=== PATIENT | male | born 1945 | race Caucasian/White ===

== ENCOUNTER 2020-02-28 04:51 | Inpatient (IN) | payer MEDICARE ==
[~2020-02-28] VITALS: Ht 167.6 cm; Wt 68.2 kg
[2020-02-28] MEDS ORDERED: LISINOPRIL2.5 MG (04:57)
[2020-02-28] MEDS ORDERED: LASIX20 MG PO (04:58)
[2020-02-28 06:07] LABS: BASOPHILS 0.1 % (0-2); EOSINOPHILS 0.9 % (0-7); HEMATOCRIT 36.5 % (42.0-54.0); IMMATURE GRANULOCYTES 0.3 % (0-5); LYMPHOCYTES 16.9 % (15-50); MCH 30.2 pg (26.0-34.0); MCHC 32.9 g/dL (31.0-37.0); MCV 91.9 fL (80.0-100.0); MEAN PLATELET VOLUME 10.7 fL (7.4-10.4); MONOCYTES 9.3 % (2-11); NEUTROPHILS 72.5 % (40-80); PLATELET COUNT 297 10x3/uL (130-400); RBC 3.97 10x6/uL (4.20-6.10); RDW 14.4 % (11.5-14.5); WBC 11.6 10x3/uL (4.8-10.8)
[2020-02-28 06:23] LABS: CALC OSMOLALITY 265 mosm/kg (275-300); CALCIUM 9.5 mg/dL (8.5-10.1); CARBON DIOXIDE 24.1 mmol/L (21.0-32.0); CHLORIDE - SERUM 100 mmol/L (98-107); CREATININE - SERUM 1.2 mg/dL (0.6-1.3); GLUCOSE 95 mg/dL (74-106); POTASSIUM - SERUM 3.9 mmol/L (3.5-5.1); SODIUM 133 mmol/L (136-145); UREA NITROGEN 12 mg/dL (7-18); eGFR NON AFRICAN AMERICAN 63 mL/min (90-120)
[2020-02-28 06:32] LABS: ALBUMIN 2.8 g/dL (3.4-5.0); ALKALINE PHOSPHATASE 83 U/L (30-120); ALT (SGPT) 23 U/L (10-68); BILIRUBIN - TOTAL 0.92 mg/dL (0.2-1.3); C-REACTIVE PROTEIN 6.9 mg/dL (0.0-0.9); PRO BNP 2297 pg/mL (0-125); PROTEIN - SERUM 7.5 g/dL (6.4-8.2); THYROID STIMULATING HORMONE 1.29 uIU/mL (0.36-3.74); TROPONIN-I < 0.017 ng/mL (0.000-0.060)
[2020-02-28 06:52] VITALS: BP 138/61
--- NOTE | 2020-02-28 07:00 | NUR ---
assumed care of pt at this time.
[2020-02-28 07:22] VITALS: BP 160/107
--- NOTE | 2020-02-28 08:00 | NUR ---
PREVIOUS RN DOCUMENTED DEPART ASSESSMENT ON WRONG PATIENT. PT ADMITTED TO RM 2136. REPORT GIVEN TO KAUR DAVIS AT 0735. VSS ON 2L O2. PT TAKEN TO FLOOR WHEN PACKET COMPLETE AT 0755. AZITHROMYCIN INFUSING @250CC/HR UPON TRANSFER TO FLOOR.
[2020-02-28 11:22] VITALS: BP 165/103
[2020-02-28 11:35] LABS: % SATURATION 7 % (15-55); IRON 22 ug/dl (35-150); TOTAL IRON BIND CAPACITY 282 ug/dl (260-445); UNSAT IRON BIND CAPACITY 260 ug/dl (150-375)
--- NOTE | 2020-02-28 13:41 | MORECARE ---
CASE MANAGEMENT DISCHARGE SUMMARY PATIENT: CHENTE GONZALEZ UNIT: [id number] ADM DATE: 02/28/20 AGE: 75 : 47 SEX: M ROOM/BED: D.2136 AUTHOR: JONE BEARDEN PHYSICIAN: REFERRING PHYSICIAN: SATHISH REBOLLEDO MD DATE OF SERVICE: 02/28/20 Discharge Plan Patient Name: CHENTE GONZALEZ Facility: [facility]:[place] : 1945 Planned Disposition: Home Anticipated Discharge Date: Discharge Date: Expected LOS: Initial Reviewer: [email or web address] Initial Review Date: 02/28/2020 Generated: 02/28/20 2:41 pm Comments DCP- Discharge Planning Updated by [email or web address]: Rubi Patrice on 02/28/20 12:[address] CM CALLED PT FOR DC ASSESSMENT AND INITIATE DC PLANNING. PT STATES HE LIVES IN A MOTEL, AND WAS NOT ABLE TO PROVIDE ANY MORE INFORMATION AT THIS TIME. PT STATES HE IS NOT FEELING WELL AND ASKED IF CM COULD CALL BACK LATER. CM WILL CONTINUE TO ASSIST WITH DC PLANNING. RUBI ZELAYA Patient Name: CHENTE GONZALEZ Page [id number] at 1341 All edits/amendments must be made on the electronic document DICTATION DATE: 02/28/20 1341 FERMENTING CELLARS SUPERVISOR: MAXMIINO 02/28/20 1341 RPT#: [id number] DC DATE: STATUS: ADM IN [facility] [address] [place] [address] END OF REPORT
[2020-02-28 15:36] VITALS: BP 165/103; Ht 167.6 cm; Wt 68.2 kg
[2020-02-28 16:04] VITALS: BP 151/76
--- NOTE | 2020-02-28 19:10 | NUR ---
recieved rounding report pt co his cough that will not end bed is low and call light is in reach
[2020-02-28 22:32] VITALS: BP 148/92
[2020-02-29 05:11] LABS: BASOPHILS 0.1 % (0-2); EOSINOPHILS 0 % (0-7); HEMATOCRIT 36.5 % (42.0-54.0); HEMOGLOBIN 12.2 g/dL (13.5-17.5); IMMATURE GRANULOCYTES 0.3 % (0-5); LYMPHOCYTES 9.1 % (15-50); MCH 30.3 pg (26.0-34.0); MCHC 33.4 g/dL (31.0-37.0); MCV 90.8 fL (80.0-100.0); MEAN PLATELET VOLUME 10.8 fL (7.4-10.4); MONOCYTES 9.1 % (2-11); NEUTROPHILS 81.4 % (40-80); PLATELET COUNT 302 10x3/uL (130-400); RBC 4.02 10x6/uL (4.20-6.10); RDW 14.4 % (11.5-14.5)
[2020-02-29 05:15] LABS: WBC 15.9 10x3/uL (4.8-10.8)
[2020-02-29 05:22] LABS: ALBUMIN 2.4 g/dL (3.4-5.0); ALKALINE PHOSPHATASE 71 U/L (30-120); ALT (SGPT) 21 U/L (10-68); BILIRUBIN - TOTAL 0.79 mg/dL (0.2-1.3); CALC OSMOLALITY 277 mosm/kg (275-300); CARBON DIOXIDE 24.5 mmol/L (21.0-32.0); CHLORIDE - SERUM 104 mmol/L (98-107); GLUCOSE 114 mg/dL (74-106); POTASSIUM - SERUM 4.3 mmol/L (3.5-5.1); PROTEIN - SERUM 6.7 g/dL (6.4-8.2); SODIUM 138 mmol/L (136-145); UREA NITROGEN 14 mg/dL (7-18); eGFR NON AFRICAN AMERICAN 78 mL/min (90-120)
[2020-02-29 05:53] VITALS: BP 152/94
[2020-02-29 07:09] VITALS: BP 111/71
--- NOTE | 2020-02-29 09:03 | NUR ---
PT ALERT AND ORIENTED X4 UPON ENTERING, UP RIGHT EATING BREAKFAST. ADMINISTERED MEDICATION, NO DIFFICULTIES. RESTING COMFORTABLY. DENIES ANY NEEDS. BED IN LOWEST POSITION, BED RAILS X2, CALL LIGHT WITHIN REACH. WILL CONTINUE TO MONITOR
[2020-02-29 10:28] VITALS: BP 145/80
--- NOTE | 2020-02-29 14:54 | MORECARE ---
CASE MANAGEMENT DISCHARGE SUMMARY PATIENT: CHENTE GONZALEZ UNIT: [id number] ADM DATE: 02/28/20 AGE: 75 : 47 SEX: M ROOM/BED: D.2136 AUTHOR: JONE BEARDEN PHYSICIAN: REFERRING PHYSICIAN: SATHISH REBOLLEDO MD DATE OF SERVICE: 02/29/20 Discharge Plan Patient Name: CHENTE GONZALEZ Facility: [facility]:[place] : 1945 Planned Disposition: Home Anticipated Discharge Date: Discharge Date: Expected LOS: Initial Reviewer: [email or web address] Initial Review Date: 02/28/2020 Generated: 02/29/20 3:53 pm DCP- Discharge Planning Updated by [email or web address]: Rubi Zelaya on 02/28/20 12:[address] CM CALLED PT FOR DC ASSESSMENT AND INITIATE DC PLANNING. PT STATES HE LIVES IN A MOTEL, AND WAS NOT ABLE TO PROVIDE ANY MORE INFORMATION AT THIS TIME. PT STATES HE IS NOT FEELING WELL AND ASKED IF CM COULD CALL BACK LATER. CM WILL CONTINUE TO ASSIST WITH DC PLANNING. RUBI ZELAYA Last DP export: 02/28/20 12:41 pm Patient Name: CHENTE GONZALEZ Page [id number] at 1454 All edits/amendments must be made on the electronic document DICTATION DATE: 02/29/20 145 ADVANCED MANUFACTURING TECHNICIAN: MAXIMINO 02/29/20 1453 RPT#: [id number] DC DATE: STATUS: ADM IN [facility] [address] [place] [address] END OF REPORT
[2020-02-29 15:02] VITALS: BP 143/91
--- NOTE | 2020-02-29 15:07 | MORECARE ---
CASE MANAGEMENT DISCHARGE SUMMARY PATIENT: CHENTE GONZALEZ UNIT: [id number] ADM DATE: 02/28/20 AGE: 75 : 47 SEX: M ROOM/BED: D.2975 AUTHOR: MONISHADOC PHYSICIAN: REFERRING PHYSICIAN: SATHISH REBOLLEDO MD DATE OF SERVICE: 02/29/20 Discharge Plan Patient Name: CHENTE GONZALEZ Facility: [facility]:[place] : 1945 Planned Disposition: Home Anticipated Discharge Date: Discharge Date: Expected LOS: Initial Reviewer: [email or web address] Initial Review Date: 02/28/2020 Generated: 02/29/20 4:07 pm Comments DCP- Discharge Planning Updated by [email or web address]: Rubi Zelaya on 02/29/20 2:[address] Patient Name: CHENTE GONZALEZ Admission Status: ER Accout number: [id number] Admission Date: 02-28-2020 : 1945 Admission Diagnosis:PNEUMONIA, UNSPECIFIED ORGANISM Attending: JOSE R Current LOS: 1 Anticipated DC Date: Planned Disposition: Home Primary Insurance: MEDICARE PART A ONLY Discharge Planning Comments: CM met with patient via phone conversation to complete initial dc planning assessment per COVID isolation guidelines. CM educated patient on the CM role and verbal consent given by patient to complete assessment. CM verified patient's address, phone number, and emergency contact phone numbers. Patient lives at home alone at the [facility] on [facility]. Pt states he understands that he will require to quarantine when he gets DC. Pt states his friend will pick him up, or he will call a taxi. States his friend lives at the motel in another room and will get food for the patient and leave it at his door. Pt states he does not have a PCP. Pt states he does not have rx insurance. CM provided good rx card. Stated rx will be called into the [facility] on [facility]. At discharge patient plans to return home and feels this is a safe discharge. CM discussed availability of home health, rehab services, and medical equipment. Patient denied known discharge needs at this time. DC IMM verbalized over phone. Pt verbalized understanding. Original provided to patient, and copy placed in the chart. CM will continue to follow and will assist as needed with dc plans/needs. Permit Coordinator: Rubi Zelaya DCP- Discharge Planning Updated by [email or web address]: Rubi Zelaya on 02/28/20 12:[address] CM CALLED PT FOR DC ASSESSMENT AND INITIATE DC PLANNING. PT STATES HE LIVES IN A MOTEL, AND WAS NOT ABLE TO PROVIDE ANY MORE INFORMATION AT THIS TIME. PT STATES HE IS NOT FEELING WELL AND ASKED IF CM COULD CALL BACK LATER. CM WILL CONTINUE TO ASSIST WITH DC PLANNING. RUBI ZELAYA DCPIA - Discharge Planning Initial Assessment Updated by [email or web address]: Rubi Zelaya on 02/29/20 2:55 pm * Is the patient Alert and Oriented? Yes * How many steps to enter\exit or inside your home? 0/0 * PCP will need set up with one * Pharmacy n/a * Preadmission Environment Home Alone * ADLs Independent * Equipment None * List name and contact numbers for known caregivers / representatives who currently or will assist patient after discharge: Michelle Gonzalez [phone] * Verbal permission to speak to the caregivers and representatives has been obtained from the patient. Yes * Community resources currently utilized None * Additional services required to return to the preadmission environment? No * Can the patient safely return to the preadmission environment? Yes * Has this patient been hospitalized within the prior 30 days at any hospital? No Last DP export: 02/29/20 1:53 pm Patient Name: CHENTE GONZALEZ Page [phone] at 1507 All edits/amendments must be made on the electronic document DICTATION DATE: 02/29/20 1507 CASTINGS DRAFTER: MAXIMINO 02/29/20 1507 RPT#: [id number] DC DATE: STATUS: ADM IN [facility] [address] [place] [address] END OF REPORT
[2020-02-29] MEDS ORDERED: BENICAR20 MG PO (15:41)
[2020-02-29] MEDS ORDERED: AZITHROMYCIN500 MG PO (15:41)
[2020-02-29] MEDS ORDERED: OMNICEF300 MG PO (15:41)
[2020-02-29] MEDS ORDERED: DECADRON4 MG PO (15:42)
--- NOTE | 2020-02-29 16:35 | NUR ---
REMOVED IV FROM LEFT WRIST, CATHETER TIP INTACT, TOLERATED WELL. SIGNED ALL NECESSARY DISCHARGE PAPERWORK. PROVIDED PT WITH DISCOUNT PRESCRIPTION CARD. WILL ESCORT PT OUT. DENIES ANY NEEDS.
--- NOTE | 2020-03-01 12:48 | MORECARE ---
CASE MANAGEMENT DISCHARGE SUMMARY PATIENT: CHENET GONZALEZ UNIT: [id number] ADM DATE: 02/28/20 AGE: 75 : 47 SEX: M ROOM/BED: D.2439 AUTHOR: MONISHADOC PHYSICIAN: REFERRING PHYSICIAN: SATHISH REBOLLEDO MD DATE OF SERVICE: 03/01/20 Discharge Plan Patient Name: CHENTE GONZALEZ Facility: [facility]:[place] : 1945 Planned Disposition: Home Anticipated Discharge Date: Discharge Date: 02/29/2020 Expected LOS: Initial Reviewer: [email or web address] Initial Review Date: 02/28/2020 Generated: 03/01/20 1:47 pm Comments DCP- Discharge Planning Updated by [email or web address]: Rubi Zelaya on 02/29/20 2:[address] Patient Name: CHENTE GONZALEZ Admission Status: ER Accout number: [id number] Admission Date: 02-28-2020 : 1945 Admission Diagnosis:PNEUMONIA, UNSPECIFIED ORGANISM Attending: JOSE R Current LOS: 1 Anticipated DC Date: Planned Disposition: Home Primary Insurance: MEDICARE PART A ONLY Discharge Planning Comments: CM met with patient via phone conversation to complete initial dc planning assessment per COVID isolation guidelines. CM educated patient on the CM role and verbal consent given by patient to complete assessment. CM verified patient's address, phone number, and emergency contact phone numbers. Patient lives at home alone at the [facility] on [address] [facility]. Pt states he understands that he will require to quarantine when he gets DC. Pt states his friend will pick him up, or he will call a taxi. [facility] and will get food for the patient and leave it at his door. Pt states he does not have a PCP. Pt states he does not have rx insurance. CM provided good rx card. Stated rx will be called into the [facility] on [facility]. At discharge patient plans to return home and feels this is a safe discharge. CM discussed availability of home health, rehab services, and medical equipment. Patient denied known discharge needs at this time. DC IMM verbalized over phone. Pt verbalized understanding. Original provided to patient, and copy placed in the chart. CM will continue to follow and will assist as needed with dc plans/needs. Airframe Technician: Rubi Zelaya DCP- Discharge Planning Updated by [email or web address]: Rubi Zelaya on 02/28/20 12:[address] CM CALLED PT FOR DC ASSESSMENT AND INITIATE DC PLANNING. PT STATES HE LIVES IN A MOTEL, AND WAS NOT ABLE TO PROVIDE ANY MORE INFORMATION AT THIS TIME. PT STATES HE IS NOT FEELING WELL AND ASKED IF CM COULD CALL BACK LATER. CM WILL CONTINUE TO ASSIST WITH DC PLANNING. RUBI ZELAYA DCPIA - Discharge Planning Initial Assessment Updated by [email or web address]: Rubi Zelaya on 02/29/20 2:55 pm * Is the patient Alert and Oriented? Yes * How many steps to enter\exit or inside your home? 0/0 * PCP will need set up with one * Pharmacy n/a * Preadmission Environment Home Alone * ADLs Independent * Equipment None * List name and contact numbers for known caregivers / representatives who currently or will assist patient after discharge: Michelle Gonzalez [phone] * Verbal permission to speak to the caregivers and representatives has been obtained from the patient. Yes * Community resources currently utilized None * Additional services required to return to the preadmission environment? No * Can the patient safely return to the preadmission environment? Yes * Has this patient been hospitalized within the prior 30 days at any hospital? No Coverage Notice Reviewer: [email or web address] - Rubi Zelaya Notice Issued Date-Time: 02/29/2020 14:00 Notice Type: IM Discharge Notice Notice Delivered To: Patient Relationship to Patient: Drywall Installer Name: Delivery Method: PHONE - Phone [place] Days: Prior Verbal Notification: Yes Recipient Understood Notice: Yes Recipient Signature: Med Rec Note Co-signed by Attending: Coverage Notice Comment: dc imm delivered Last DP export: 02/29/20 2:07 pm Patient Name: CHENTE GONZALEZ Page [phone] at 1248 All edits/amendments must be made on the electronic document DICTATION DATE: 03/01/20 1245 INSIDE SALES DIRECTOR: MAXIMINO 03/01/20 1247 RPT#: [id number] DC DATE:02/29/20 STATUS: DIS IN [facility] [address] [place] [address] END OF REPORT
== END 2020-02-29 16:46 | disposition home or self-care (01) | DRG 177 ==
LOC: D.ER 04:51 → D.M2 06:58
PROVIDERS: Family Medicine; ADMIT Family Medicine; ATTEND Family Medicine
DX: U07.1 COVID-19 (principal); J12.89 Other viral pneumonia; I50.21 Acute systolic (congestive) heart failure; E87.1 Hypo-osmolality and hyponatremia; D64.9 Anemia, unspecified; I25.10 Atherosclerotic heart disease of native coronary artery without angina pectoris; R00.0 Tachycardia, unspecified; D50.9 Iron deficiency anemia, unspecified; Z87.891 Personal history of nicotine dependence; I11.0 Hypertensive heart disease with heart failure